=== PATIENT | female | born 1995 | race Caucasian/White ===

== ENCOUNTER 2019-12-08 12:45 | Outpatient (RCR) | payer OTHER | END 2020-01-08 07:58 | disposition home or self-care (01) | LOC: ONC 12:45 | PROVIDERS: ATTEND Internal Medicine Hematology & Oncology | DX: O03.9 Complete or unspecified spontaneous abortion without complication (principal) | CPT/HCPCS: 83090; 85610; 85613; 85705; 85730; 86146 ×2; 86147 ×2; G0463; 99213; 99214 ==